=== PATIENT | female | born 1985 | race Two or more races ===

== ENCOUNTER 2019-03-30 13:56 | Inpatient (IN) | payer OTHER ==
[2019-03-30 14:13] VITALS: BMI 27.2
--- NOTE | 2019-03-30 19:44 | HP ---
COWS - Scale Resting Pulse: 0= [place] 80 or Below Sweatin=Flushed/Facial Moisture Restless Observation: 1= Difficult to Sit Still Pupil Size: 1= Pupils >than Normal Bone or Joint Aches: 2= Severe Diffuse Aches Runny Nose/ Eye Tearin= Runny Nose/Eyes GI Upset > 30mins: 2= Nausea/Diarrhea Tremor Observation: 2= Slight Tremor Visible Yawning Observation: 1= 1-2x During Session Anxiety or Irritability: 2=Irritable/Anxious Goose Flesh Skin: 3=Piloerection COWS Score: 18 CIWA Score Nausea/Vomitin Muscle Tremors: 2 Anxiety: 2 Agitation: 2 Paroxysmal Sweats: 2 Orientation: 0-Oriented Tacttile Disturbances: 2-Mild Itch/Numbness/Burn Auditory Disturbances: 1-Very Mild Visual Disturbances: 1-Very Mild Sensitivity Headache: 3-Moderate CIWA-Ar Total Score: 17 - Admission Criteria OASAS Guidelines: Admission for Medically Managed Detox: Requires at least one of the followin. CIWA greater than 12 2. Seizures within the past 24 hours 3. Delirium tremens within the past 24 hours 4. Hallucinations within the past 24 hours 5. Acute intervention needed for co occurring medical disorder 6. Acute intervention needed for co occurring psychiatric disorder 7. Severe withdrawal that cannot be handled at a lower level of care (continued vomiting, continued diarrhea, abnormal vital signs) requiring intravenous medication and/or fluids 8. Patient presents the following: CIWA greater than 12 Admission Criteria Met: Admission criteria met Admission ROS [facility] Chief Complaint: I want to get off this withdrawal Allergies/Adverse Reactions: Allergies Allergy/AdvReac Type Severity Reaction Status Date / Time No Known Allergies Allergy Verified 03/30/19 14:01 History of Present Illness: 34 year old woman with illicit drug use and alcohol dependence presents for detox. She was treated at [facility] for overdose, denies blackouts from alcohol but has had blackouts from Xanax. Patient is noted with an abscess to the right forearm, site tender and swollen, no drainage, antibiotic therapy initiated. Exam Limitations: No Limitations - Ebola screening Have you traveled outside of the country in the last 21 days: No Have you had contact with anyone from an Ebola affected area: No Have you been sick,other than usual withdrawal symptoms: No Do you have a fever: No - Review of Systems Constitutional: Chills, Loss of Appetite, Malaise, Weakness EENT: reports: Blurred Vision, Nose Congestion Respiratory: reports: SOB with Exertion Cardiac: reports: Lightheadedness GI: reports: Nausea, Poor Appetite, Poor Fluid Intake : reports: No Symptoms Reported Musculoskeletal: reports: Back Pain, Joint Pain, Muscle Pain, Muscle Weakness Integumentary: reports: Lesions (psoriatic plaques to the elbows) Neuro: reports: Headache, Numbness, Tingling, Tremors Endocrine: reports: No Symptoms Reported Hematology: reports: Anemia Psychiatric: reports: No Sypmtoms Reported Other Systems: Reviewed and Negative Patient History - Patient Medical History Hx Anemia: No Hx Asthma: Yes Hx Chronic Obstructive Pulmonary Disease (COPD): No Hx Cancer: No Hx Cardiac Disorders: No Hx Congestive Heart Failure: No Hx Hypertension: No Hx Hypercholesterolemia: No Hx Pacemaker: No HX Cerebrovascular Accident: No Hx Seizures: No Hx Dementia: No Hx Diabetes: No Hx Gastrointestinal Disorders: No Hx Liver Disease: Yes Hx Genitourinary Disorders: No Hx Sexually Transmitted Disorders: No Hx Thyroid Disease: No Hx Human Immunodeficiency Virus (HIV): No Hx Hepatitis C: Yes (untreated) Hx Depression: No Hx Suicide Attempt: No Hx Bipolar Disorder: No Hx Schizophrenia: No - Patient Surgical History Past Surgical History: Yes Hx Neurologic Surgery: No Hx Cataract Extraction: No Hx Cardiac Surgery: No Hx Lung Surgery: No Hx Breast Surgery: No Hx Breast Biopsy: No Hx Abdominal Surgery: No Hx Appendectomy: No Hx Cholecystectomy: No Hx Genitourinary Surgery: No Hx Section: Yes Hx Orthopedic Surgery: No Hx Hysterectomy: No Anesthesia Reaction: No - PPD History Previous Implant?: Yes Documented Results: Negative w/o proof Implanted On Prior R Admission?: No PPD to be Administered?: Yes - Reproductive History Patient is a Female of Child Bearing Age (11 -55 yrs old): Yes LMP comment: "I dont know" Patient : No - Smoking Cessation Smoking history: Current every day smoker Have you smoked in the past 12 months: Yes Aproximately how many cigarettes per day: 12 Hx Chewing Tobacco Use: No Initiated information on smoking cessation: Yes 'Breaking Loose' booklet given: 03/30/19 - Substances abused Alprazolam (Xanax) Substance route: Oral Frequency: Daily Amount used: 2 bars Age of first use: 29 Date of last use: 03/29/19 Crack Substance route: Smoking Frequency: Daily Amount used: $40 Age of first use: 27 Date of last use: 03/29/19 Heroin Substance route: Injection Frequency: Daily Amount used: 10- 15bags Age of first use: 28 Date of last use: 03/29/19 Admission Physical Exam [facility] - Vital Signs Vital Signs: Vital Signs - 24 hr 03/30/19 14:05 Temperature 97.4 F L Pulse Rate 69 Respiratory 20 Rate Blood Pressure 116/87 - Physical General Appearance: Yes: Disheveled HEENTM: Yes: Hearing grossly Normal, Normocephalic, Normal Voice, Pharynx Normal Respiratory: Yes: No Respiratory Distress, No Accessory Muscle Use, Wheezing Neck: Yes: No masses,lesions,Nodules, Supple Breast: Yes: Breast Exam Deferred Cardiology: Yes: Regular Rate, S1, S2, Murmur Abdominal: Yes: Normal Bowel Sounds, Non Tender Genitourinary: Yes: Within Normal Limits Back: Yes: Normal Inspection Musculoskeletal: Yes: full range of Motion, Back pain, Muscle weakness Extremities: Yes: Tremors, Other (right forearm swelling) Neurological: Yes: melting operator II-XII NML intact, Fully Oriented, Alert, Normal Mood/ Affect Integumentary: Yes: Track Miller, Other (psoriasis) - Diagnostic (1) Alcohol dependence, uncomplicated Current Visit: Yes Status: Acute (2) Benzodiazepine abuse Current Visit: Yes Status: Acute (3) Nicotine dependence Current Visit: Yes Status: Acute Qualifiers: Nicotine product type: cigarettes Substance use status: uncomplicated Qualified Code(s): F17.210 - Nicotine dependence, cigarettes, uncomplicated (4) Abscess of forearm, right Current Visit: Yes Status: Acute (5) IVDU (intravenous drug user) Current Visit: Yes Status: Acute (6) Asthma Current Visit: Yes Status: Acute Qualifiers: Asthma severity: mild Asthma persistence: intermittent Asthma complication type: uncomplicated Qualified Code(s): J45.20 - Mild intermittent asthma, uncomplicated (7) Hep C w/o coma, chronic Current Visit: Yes Status: Acute Cleared for Admission [facility] - Detox or Rehab [facility] Level of Care: Medically Managed Detox Regimen/Protocol: Methadone/Librium Claeared for Rehab Admission: No Breathalyzer - Breathalyzer Breathalyzer: 0 Urine Drug Screen - Test Device Lot number: [id number] Expiration date: 11/09/20 - Control Is test valid?: Yes - Results Drug screen NEGATIVE: No Urine drug screen results: ANTONIO-Cocaine, FEN-Fentanyl, MOP-Opiates, MTD-Methadone , BZO-Benzodiazepines Inpatient Rehab Admission - Rehab Decision to Admit Inpatient rehab admission?: No
[2019-03-30] MEDS ORDERED: BISMUTH SUBSALICYLATE 524 MG/30 ML UD PO PRN (19:53)
[2019-03-30] MEDS ORDERED: chlordiazePOXIDE HCL 25 MG CAPSULE PO PRN (19:53)
[2019-03-30] MEDS ORDERED: NALOXONE HCL 0.4 MG/ML VIAL IM PRN (19:53)
[2019-03-30] MEDS ORDERED: MAG HYDROX/AL HYDROX/SIMETH 30 ML UNIT-DOSE CUP PO PRN (19:53)
[2019-03-30] MEDS ORDERED: METHADONE HCL 10 MG TABLET (FOR DETOX USE ONLY) PO ONE (19:53)
[2019-03-30] MEDS ORDERED: MAGNESIUM HYDROX 2400MG/30ML ORAL SUSPENSION 30 ML CUP PO PRN (19:53)
[2019-03-30] MEDS ORDERED: MELATONIN 5 MG TABLETS PO PRN (19:53)
[2019-03-30] MEDS ORDERED: cloNIDine HCL 0.1 MG TABLET PO PRN (19:53)
[2019-03-30] MEDS ORDERED: MAGNESIUM CITRATE 300 ML BOTTLE PO PRN (19:53)
[2019-03-30] MEDS ORDERED: ACETAMINOPHEN 325 MG TABLET (FP) PO PRN ×2 (19:53)
[2019-03-30] MEDS ORDERED: NICOTINE POLACRILEX 2 MG GUM BUC PRN (19:53)
[2019-03-30] MEDS ORDERED: IBUPROFEN 400 MG TABLET (FP) PO PRN (19:53)
[2019-03-30] MEDS ORDERED: ALBUTEROL SO4 8 GM HFA INHALER IH PRN (19:55)
[2019-03-30] MEDS: SULFAMETHOXAZOLE/TRIMETHOPRIM 800MG/160MG D.S. TABLET PO SCH (21:13)
[2019-03-30] MEDS: traZODone HCL 100 MG TABLET (FP) PO SCH (21:13)
[2019-03-30] MEDS: THIAMINE HCL 100 MG TABLET (FP) PO SCH (21:13)
[2019-03-30] MEDS: NICOTINE 14 MG/24 HOURS TOPICAL PATCH TD SCH (21:25)
[2019-03-30] MEDS: DIVALPROEX SODIUM 500 MG TABLET E.C. PO SCH (22:04)
[2019-03-30] MEDS: chlordiazePOXIDE HCL 25 MG CAPSULE PO SCH (23:04)
[2019-03-31] MEDS: chlordiazePOXIDE HCL 25 MG CAPSULE PO SCH ×4 (06:46→22:23)
[2019-03-31] MEDS ORDERED: METHADONE HCL 5 MG TABLET (FOR DETOX USE ONLY) ONE (09:27)
[2019-03-31] MEDS ORDERED: METHADONE HCL 10 MG TABLET (FOR DETOX USE ONLY) ONE (09:28)
[2019-03-31] MEDS ORDERED: METHADONE (DETOX) 20 MG, METHADONE (DETOX) 5 MG PO ONE (10:00)
[2019-03-31] MEDS: SULFAMETHOXAZOLE/TRIMETHOPRIM 800MG/160MG D.S. TABLET PO SCH ×2 (10:23→22:23)
[2019-03-31] MEDS: DIVALPROEX SODIUM 500 MG TABLET E.C. PO SCH ×2 (10:23→22:23)
[2019-03-31] MEDS: PRENATAL VITAMINS W/ FOLIC ACID TABLET (FP) PO SCH (10:24)
[2019-03-31] MEDS: NICOTINE 14 MG/24 HOURS TOPICAL PATCH TD SCH (10:26)
[2019-03-31 10:54] LABS: MCH 29.2 pg (25.7-33.7); MCHC 33.2 g/dl (32.0-36.0); MEAN CELL VOLUME 87.9 fl (80-96); MEAN PLT VOLUME 7.4 fl (7.5-11.1); PLATELET COUNT 407 K/MM3 (134-434); RBC 3.75 M/mm3 (3.60-5.2); RDW 16.1 % (11.6-15.6); WHITE BLOOD COUNT 5.5 K/mm3 (4.0-10.0)
[2019-03-31 11:25] LABS: ALBUMIN 2.7 g/dl (3.4-5.0); BILIRUBIN,TOTAL 0.4 mg/dL (0.2-1); BLOOD UREA NITROGEN 8.4 mg/dL (7-18); CALCIUM 8.4 mg/dL (8.5-10.1); CREATININE 0.6 mg/dL (0.55-1.3); POTASSIUM 4.2 mmol/L (3.5-5.1); TOT PROT 6.1 g/dl (6.4-8.2)
[2019-03-31] MEDS ORDERED: FLU VACCINE QUAD 60 MCG/0.5 ML (MDV 19-20) IM ONE (12:32)
--- NOTE | 2019-03-31 12:38 | PN ---
[facility] CIWA - CIWA Score Nausea/Vomitin-Mild Nausea/No Vomiting Muscle Tremors: 4-Moderate,w/Arms Extend Anxiety: 4-Mod. Anxious/Guarded Agitation: 3 Paroxysmal Sweats: 3 Orientation: 0-Oriented Tacttile Disturbances: 0-None Auditory Disturbances: 0-None Visual Disturbances: 0-None Headache: 0-None Present CIWA-Ar Total Score: 15 BHS COWS - Scale Resting Pulse: 0= [place] 80 or Below Sweatin= Chills/Flushing Restless Observation: 3= Extraneous Movement Pupil Size: 0= Normal to Room Light Bone or Joint Aches: 2= Severe Diffuse Aches Runny Nose/ Eye Tearin= Runny Nose/Eyes GI Upset > 30mins: 3= Vomiting/Diarrhea Tremor Observation of Outstretched Hands: 2= Slight Tremor Visible Yawning Observation: 0= None Anxiety or Irritability: 2=Irritable/Anxious Goose Flesh Skin: 0=Smooth Skin COWS Score: 15 S Progress Note (SOAP) Subjective: Feels ok, medication helpful Objective: 03/31/19 12:34 Last Vital Signs Temp Pulse Resp BP Pulse Ox 97.7 F 68 18 90/53 L 03/31/19 09:33 03/31/19 09:33 03/31/19 09:33 03/31/19 09:33 Hypotension noted: encouraged PO water intake Laboratory Tests 03/31/19 03/31/19 08:00 08:00 WBC 5.5 RBC 3.75 Hgb 11.0 Hct 33.0 MCV 87.9 MCH 29.2 MCHC 33.2 RDW 16.1 H Plt Count 407 MPV 7.4 L Sodium 142 Potassium 4.2 Chloride 106 Carbon Dioxide 28 Anion Gap 8 BUN 8.4 Creatinine 0.6 Est GFR (CKD-EPI)AfAm 138.80 Est GFR (CKD-EPI)NonAf 119.76 Random Glucose 80 Calcium 8.4 L Total Bilirubin 0.4 AST 83 H ALT 111 H Alkaline Phosphatase 88 Total Protein 6.1 L Albumin 2.7 L Labs reviewed: mildly elevated AST/ALT most likely due to alcoholism Assessment: 03/31/19 12:35 Withdrawal sxs Plan: Continue detox Hypotension: asymptomatic, encouraged PO water intake Elevated LFTs (AST/ALT): most likely r/t alcoholism, consider monitoring AST/ ALT periodically
[2019-03-31] MEDS: traZODone HCL 100 MG TABLET (FP) PO SCH (22:23)
[2019-03-31] MEDS: THIAMINE HCL 100 MG TABLET (FP) PO SCH (22:23)
[2019-04-01] MEDS: chlordiazePOXIDE HCL 25 MG CAPSULE PO SCH ×4 (06:42→22:01)
[2019-04-01] MEDS ORDERED: METHADONE HCL 10 MG TABLET (FOR DETOX USE ONLY) PO ONE (10:00)
[2019-04-01] MEDS: SULFAMETHOXAZOLE/TRIMETHOPRIM 800MG/160MG D.S. TABLET PO SCH ×2 (10:16→21:51)
[2019-04-01] MEDS: DIVALPROEX SODIUM 500 MG TABLET E.C. PO SCH ×2 (10:16→21:51)
[2019-04-01] MEDS: PRENATAL VITAMINS W/ FOLIC ACID TABLET (FP) PO SCH (10:16)
[2019-04-01] MEDS: NICOTINE 14 MG/24 HOURS TOPICAL PATCH TD SCH (10:16)
[2019-04-01] MEDS: METHOCARBAMOL 500 MG TABLET PO PRN ×2 (10:18→18:02)
--- NOTE | 2019-04-01 11:26 | PN ---
[facility] CIWA - CIWA Score Nausea/Vomitin-Mild Nausea/No Vomiting Muscle Tremors: 2 Anxiety: 2 Agitation: 2 Paroxysmal Sweats: No Perspiration Orientation: 0-Oriented Tacttile Disturbances: 1-Very Mild Itch/Numbness Auditory Disturbances: 0-None Visual Disturbances: 0-None Headache: 2-Mild CIWA-Ar Total Score: 10 S Progress Note (SOAP) Subjective: alert,irritable,anxious,interrupted sleep,tremor,pain in the body Objective: 04/01/19 11:25 Vital Signs Temperature 96.5 F L 04/01/19 09:32 Pulse Rate 75 04/01/19 09:32 Respiratory Rate 18 04/01/19 09:32 Blood Pressure 118/66 04/01/19 09:32 O2 Sat by Pulse Oximetry (%) Laboratory Last Values WBC 5.5 K/mm3 (4.0-10.0) 03/31/19 08:00 RBC 3.75 M/mm3 (3.60-5.2) 03/31/19 08:00 Hgb 11.0 GM/dL (10.7-15.3) 03/31/19 08:00 Hct 33.0 % (32.4-45.2) 03/31/19 08:00 MCV 87.9 fl (80-96) 03/31/19 08:00 MCH 29.2 pg (25.7-33.7) 03/31/19 08:00 MCHC 33.2 g/dl (32.0-36.0) 03/31/19 08:00 RDW 16.1 % (11.6-15.6) H 03/31/19 08:00 Plt Count 407 K/MM3 (134-434) 03/31/19 08:00 MPV 7.4 fl (7.5-11.1) L 03/31/19 08:00 Sodium 142 mmol/L (136-145) 03/31/19 08:00 Potassium 4.2 mmol/L (3.5-5.1) 03/31/19 08:00 Chloride 106 mmol/L (98-107) 03/31/19 08:00 Carbon Dioxide 28 mmol/L (21-32) 03/31/19 08:00 Anion Gap 8 MMOL/L (8-16) 03/31/19 08:00 BUN 8.4 mg/dL (7-18) 03/31/19 08:00 Creatinine 0.6 mg/dL (0.55-1.3) 03/31/19 08:00 Est GFR (CKD-EPI)AfAm 138.80 03/31/19 08:00 Est GFR (CKD-EPI)NonAf 119.76 03/31/19 08:00 Random Glucose 80 mg/dL (74-106) 03/31/19 08:00 Calcium 8.4 mg/dL (8.5-10.1) L 03/31/19 08:00 Total Bilirubin 0.4 mg/dL (0.2-1) 03/31/19 08:00 AST 83 U/L (15-37) H 03/31/19 08:00 ALT 111 U/L (13-61) H 03/31/19 08:00 Alkaline Phosphatase 88 U/L (45-117) 03/31/19 08:00 Total Protein 6.1 g/dl (6.4-8.2) L 03/31/19 08:00 Albumin 2.7 g/dl (3.4-5.0) L 03/31/19 08:00 RPR Titer Nonreactive (NONREACTIVE) 03/31/19 08:00 Assessment: 04/01/19 11:26 withdrawal symptom Plan: continue detox librium regimen repeat ast,alt in am
[2019-04-01] MEDS: MENTHOL/PHENOL 1 EACH UD MM PRN (18:03)
[2019-04-01] MEDS: THIAMINE HCL 100 MG TABLET (FP) PO SCH (21:51)
[2019-04-01] MEDS: traZODone HCL 100 MG TABLET (FP) PO SCH (21:52)
[2019-04-02] MEDS ORDERED: chlordiazePOXIDE HCL 10 MG CAPSULE PO PRN
[2019-04-02] MEDS: chlordiazePOXIDE HCL 10 MG CAPSULE PO SCH ×4 (07:22→22:32)
[2019-04-02] MEDS ORDERED: METHADONE HCL 5 MG TABLET (FOR DETOX USE ONLY) ONE (09:05)
[2019-04-02] MEDS ORDERED: METHADONE HCL 10 MG TABLET (FOR DETOX USE ONLY) ONE (09:05)
[2019-04-02] MEDS ORDERED: METHADONE (DETOX) 10 MG, METHADONE (DETOX) 5 MG PO ONE (10:00)
[2019-04-02] MEDS: SULFAMETHOXAZOLE/TRIMETHOPRIM 800MG/160MG D.S. TABLET PO SCH ×2 (10:32→21:37)
[2019-04-02] MEDS: NICOTINE 14 MG/24 HOURS TOPICAL PATCH TD SCH (10:32)
[2019-04-02] MEDS: PRENATAL VITAMINS W/ FOLIC ACID TABLET (FP) PO SCH (10:32)
[2019-04-02] MEDS: METHOCARBAMOL 500 MG TABLET PO PRN ×2 (10:33→17:33)
[2019-04-02] MEDS: DIVALPROEX SODIUM 500 MG TABLET E.C. PO SCH ×2 (10:33→21:37)
--- NOTE | 2019-04-02 12:36 | PN ---
S CIWA - CIWA Score Nausea/Vomitin-No Nausea/No Vomiting Muscle Tremors: 2 Anxiety: 2 Agitation: 2 Paroxysmal Sweats: 2 Orientation: 0-Oriented Tacttile Disturbances: 0-None Auditory Disturbances: 0-None Visual Disturbances: 0-None Headache: 0-None Present CIWA-Ar Total Score: 8 BHS Progress Note (SOAP) Subjective: body aches sweats interrupted sleep Objective: 04/02/19 12:35 Vital Signs Temperature 100.2 F H 04/02/19 11:26 Pulse Rate 79 04/02/19 11:26 Respiratory Rate 18 04/02/19 11:26 Blood Pressure 147/60 04/02/19 11:26 O2 Sat by Pulse Oximetry (%) Laboratory Tests 03/30/19 03/31/19 03/31/19 20:33 08:00 08:00 WBC 5.5 RBC 3.75 Hgb 11.0 Hct 33.0 MCV 87.9 MCH 29.2 MCHC 33.2 RDW 16.1 H Plt Count 407 MPV 7.4 L Sodium 142 Potassium 4.2 Chloride 106 Carbon Dioxide 28 Anion Gap 8 BUN 8.4 Creatinine 0.6 Est GFR (CKD-EPI)AfAm 138.80 Est GFR (CKD-EPI)NonAf 119.76 Random Glucose 80 Calcium 8.4 L Total Bilirubin 0.4 AST 83 H ALT 111 H Alkaline Phosphatase 88 Total Protein 6.1 L Albumin 2.7 L POC Urine HCG, Qual Negative RPR Titer 03/31/19 08:00 WBC RBC Hgb Hct MCV MCH MCHC RDW Plt Count MPV Sodium Potassium Chloride Carbon Dioxide Anion Gap BUN Creatinine Est GFR (CKD-EPI)AfAm Est GFR (CKD-EPI)NonAf Random Glucose Calcium Total Bilirubin AST ALT Alkaline Phosphatase Total Protein Albumin POC Urine HCG, Qual RPR Titer Nonreactive labs noted elevated ast/alt; d/c tylenol aaox3 ambulating no acute distress Assessment: 04/02/19 12:36 withdrawal sx Plan: continue detox increase fluids
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
[2019-04-02] MEDS: MENTHOL/PHENOL 1 EACH UD MM PRN (17:34)
[2019-04-02] MEDS: THIAMINE HCL 100 MG TABLET (FP) PO SCH (21:37)
[2019-04-02] MEDS: traZODone HCL 100 MG TABLET (FP) PO SCH (21:37)
[2019-04-03] MEDS: chlordiazePOXIDE HCL 10 MG CAPSULE PO SCH ×2 (06:58→18:19)
[2019-04-03 09:27] VITALS: BP 91/66; PULSE 77; TEMP 96.3
--- NOTE | 2019-04-03 09:43 | EKG ---
Test Reason : Blood Pressure : / mmHG Vent. Rate : 075 BPM Atrial Rate : 075 BPM P-R Int : 172 ms QRS Dur : 086 ms QT Int : 398 ms P-R-T Axes : 056 072 038 degrees QTc Int : 444 ms NORMAL SINUS RHYTHM NORMAL ECG NO PREVIOUS ECGS AVAILABLE Confirmed by CAYDEN NICK, TASHI ([id number]) on 04/03/2019 9:43:31 AM Referred By: BOB ALMEIDA Confirmed By:TASHI RODARTE MD
--- NOTE | 2019-04-03 09:55 | PN ---
S Progress Note Note: pt woke up this morning c/o of a large swelling noted to her left side of neck. Pt was assessed and it appears to be an abscess size of an apple to her left lateral side of neck. pt denies having pain or difficulty swallowing. However pt was encouraged to see our MD at our ED at [facility] and pt agreed. report given to MARTY Spears for evaluation.
[2019-04-03] MEDS: PRENATAL VITAMINS W/ FOLIC ACID TABLET (FP) PO SCH (09:57)
[2019-04-03] MEDS: METHOCARBAMOL 500 MG TABLET PO PRN (09:57)
[2019-04-03] MEDS ORDERED: METHADONE HCL 10 MG TABLET (FOR DETOX USE ONLY) PO ONE (10:00)
[2019-04-03] MEDS: SULFAMETHOXAZOLE/TRIMETHOPRIM 800MG/160MG D.S. TABLET PO SCH (11:32)
[2019-04-03] MEDS: DIVALPROEX SODIUM 500 MG TABLET E.C. PO SCH (11:32)
[2019-04-03] MEDS: NICOTINE 14 MG/24 HOURS TOPICAL PATCH TD SCH (11:32)
--- NOTE | 2019-04-03 18:25 | PN ---
[facility] Progress Note Note: Received call from MARCELO Maher from [place] ED regarding pt refusal of care for an enormous abscess she was sent there for. Pt was spoken to via phone with MARCELO Maher present and pt continue to state she is going to leave and will sign our AMA because she doesnt want any treatment. Pt was also explained that without this care and having the abscess drained and IV antibiotic given she cannot continue treatment in detox. Pt understand this and insisted she will leave and go home location [facility] [place]. pt will be d/c from detox effective now.
--- NOTE | 2019-04-03 18:27 | DS ---
[facility] Detox Discharge Summary Admission Date: 03/30/19 - History Present History: Opioid Dependence Additional Comments: pt sent to [facility] for evaluation for an abscess to her left side of neck. - Physical Exam Results Vital Signs: Vital Signs Temperature 96.3 F L 04/03/19 09:27 Pulse Rate 77 04/03/19 09:27 Respiratory Rate 16 04/03/19 09:27 Blood Pressure 91/66 04/03/19 09:27 O2 Sat by Pulse Oximetry (%) - Treatment Patient has Accepted a Rehab Referral to: pt refused all treatment - Medication Discharge Medications: Ambulatory Orders Divalproex [Depakote -] 500 mg PO BID 03/30/19 traZODone HCL [Trazodone HCl] 100 mg PO HS 03/30/19 - Diagnosis (1) Abscess, neck Current Visit: Yes Status: Acute (2) Alcohol dependence, uncomplicated Current Visit: Yes Status: Chronic (3) IVDU (intravenous drug user) Current Visit: Yes Status: Chronic (4) Sedative hypnotic or anxiolytic dependence Current Visit: Yes Status: Acute (5) Substance induced mood disorder Current Visit: Yes Status: Acute (6) Substance-induced sleep disorder Current Visit: Yes Status: Acute (7) Uncomplicated opioid dependence Current Visit: Yes Status: Chronic (8) Abscess of forearm, right Current Visit: Yes Status: Chronic (9) Asthma Current Visit: Yes Status: Chronic Qualifiers: Asthma severity: mild Asthma persistence: intermittent Asthma complication type: uncomplicated Qualified Code(s): J45.20 - Mild intermittent asthma, uncomplicated (10) Hep C w/o coma, chronic Current Visit: Yes Status: Chronic (11) Nicotine dependence Current Visit: Yes Status: Chronic Qualifiers: Nicotine product type: cigarettes Substance use status: uncomplicated Qualified Code(s): F17.210 - Nicotine dependence, cigarettes, uncomplicated - AMA Did Patient Leave Against Medical Advice: Yes
[2019-04-04] MEDS ORDERED: chlordiazePOXIDE HCL 10 MG CAPSULE PO ONE (05:00)
[2019-04-04] MEDS ORDERED: METHADONE HCL 5 MG TABLET (FOR DETOX USE ONLY) PO ONE (06:00)
== END 2019-04-03 18:51 | disposition home or self-care (01) | DRG 773 ==
LOC: YASAS 13:56 → Y6N 20:16
PROVIDERS: ADMIT Allergy & Immunology; ATTEND Allergy & Immunology
PROC: HZ2ZZZZ Detoxification Services for Substance Abuse Treatment (ICD-10-PCS; principal; 2019-03-30)
DX: F11.23 Opioid dependence with withdrawal (principal); F10.230 Alcohol dependence with withdrawal, uncomplicated; F13.230 Sedative, hypnotic or anxiolytic dependence with withdrawal, uncomplicated; F17.210 Nicotine dependence, cigarettes, uncomplicated; F19.24 Other psychoactive substance dependence with psychoactive substance-induced mood disorder; F19.282 Other psychoactive substance dependence with psychoactive substance-induced sleep disorder; J45.20 Mild intermittent asthma, uncomplicated; B18.2 Chronic viral hepatitis C; R74.0 Nonspecific elevation of levels of transaminase and lactic acid dehydrogenase [LDH]; I95.9 Hypotension, unspecified; R01.1 Cardiac murmur, unspecified; L02.11 Cutaneous abscess of neck; L02.413 Cutaneous abscess of right upper limb
CPT/HCPCS: 36415; 70491-TC; 80053; 81025; 84703; 85025; 85027; 85610; 86593; 86850; 86900; 86901; 93005; 93010; 99283-25

== ENCOUNTER 2019-04-03 10:56 | Emergency (ER) | payer OTHER ==
[2019-04-03 11:04] VITALS: BP 95/70; PULSE 90; TEMP 98; BMI 25.8
[2019-04-03 13:03] LABS: BASO % 0.4 % (0-2.0); EOS % 4.2 % (0-4.5); HEMATOCRIT 39.6 % (32.4-45.2); HEMOGLOBIN 12.9 GM/dL (10.7-15.3); LYMPH % 22.3 % (8-40); MCH 28.7 pg (25.7-33.7); MCHC 32.5 g/dl (32.0-36.0); MEAN CELL VOLUME 88.2 fl (80-96); MEAN PLT VOLUME 6.9 fl (7.5-11.1); MONO % 9.7 % (3.8-10.2); NEUT % 63.4 % (42.8-82.8); PLATELET COUNT 501 K/MM3 (134-434); RBC 4.49 M/mm3 (3.60-5.2); RDW 15.9 % (11.6-15.6); WHITE BLOOD COUNT 8.2 K/mm3 (4.0-10.0)
[2019-04-03 13:22] LABS: INR 1.18 (0.83-1.09); PROTHROMBIN TIME (PATIENT) 13.9 SEC (9.7-13.0)
[2019-04-03 13:41] LABS: ALBUMIN 3.4 g/dl (3.4-5.0); BILIRUBIN,TOTAL 0.3 mg/dL (0.2-1); BLOOD UREA NITROGEN 11.8 mg/dL (7-18); CALCIUM 9.4 mg/dL (8.5-10.1); POTASSIUM 5.1 mmol/L (3.5-5.1); TOT PROT 7.9 g/dl (6.4-8.2)
--- NOTE | 2019-04-03 13:47 | PDOC ---
History of Present Illness - General Chief Complaint: Abscess Boil Stated Complaint: ABSCESS Time Seen by Provider: 04/03/19 11:56 History Source: Patient - History of Present Illness Timing/Duration: other (this am) Past History - Past Medical History Allergies/Adverse Reactions: Allergies Allergy/AdvReac Type Severity Reaction Status Date / Time No Known Allergies Allergy Verified 03/30/19 14:01 Home Medications: Ambulatory Orders Divalproex [Depakote -] 500 mg PO BID 03/30/19 traZODone HCL [Trazodone HCl] 100 mg PO HS 03/30/19 Anemia: No Asthma: No Cancer: No Cardiac Disorders: No CVA: No COPD: No CHF: No Dementia: No Diabetes: No GI Disorders: No Disorders: No HTN: No Hypercholesterolemia: No Liver Disease: Yes Seizures: No Thyroid Disease: No - Surgical History Abdominal Surgery: No Appendectomy: No Cardiac Surgery: No Cholecystectomy: No Lung Surgery: No Neurologic Surgery: No Orthopedic Surgery: No - Psycho Social/Smoking Cessation Hx Smoking History: Current some day smoker Have you smoked in the past 12 months: Yes Number of Cigarettes Smoked Daily: 12 Information on smoking cessation initiated: No 'Breaking Loose' booklet given: 03/30/19 Hx Alcohol Use: No Drug/Substance Use Hx: Yes Review of Systems - Review of Systems Constitutional: No: Chills, Fever *Physical Exam - Vital Signs Last Vital Signs Temp Pulse Resp BP Pulse Ox 98 F 90 18 95/70 96 04/03/19 11:01 04/03/19 11:01 04/03/19 11:01 04/03/19 11:01 04/03/19 11:01 - Physical Exam General Appearance: Yes: Appropriately Dressed. No: Apparent Distress HEENT: positive: Normal Voice Neck: positive: Other (mass the size of an apple to L neck, NT, fixed, non fluctuant, no overlying erythema) Respiratory/Chest: negative: Respiratory Distress Integumentary: positive: Dry, Warm Neurologic: positive: Fully Oriented, Alert, Normal Mood/Affect ED Treatment Course - LABORATORY CBC & Chemistry Diagram: 04/03/19 12:30 04/03/19 12:30 - ADDITIONAL ORDERS Additional order review: Laboratory Results 04/03/19 04/03/19 04/03/19 12:30 12:30 12:30 PT with INR 13.90 H INR 1.18 H Sodium 133 L Potassium 5.1 Chloride 99 Carbon Dioxide 29 Anion Gap 5 L BUN 11.8 Creatinine 1.0 Est GFR (CKD-EPI)AfAm 85.72 Est GFR (CKD-EPI)NonAf 73.96 Random Glucose 91 Calcium 9.4 Total Bilirubin 0.3 AST 84 H ALT 126 H Alkaline Phosphatase 113 Total Protein 7.9 Albumin 3.4 Serum , Qual Negative 04/03/19 12:30 RBC 4.49 MCV 88.2 MCHC 32.5 RDW 15.9 H MPV 6.9 L Neutrophils % 63.4 Lymphocytes % 22.3 Monocytes % 9.7 Eosinophils % 4.2 Basophils % 0.4 - RADIOLOGY Radiology Studies Ordered: Category Date Time Status SOFT TISSUE NECK CT WITH CONTR [CT] Stat CT Scan 04/03/19 12:02 Ordered Medical Decision Making - Medical Decision Making 04/03/19 13:48 34-year-old female history of polysubstance abuse, HCV, abscesses, currently inpatient at [facility] for detox and sent to ED for eval of L neck mass that pt awoke with this am. Denies sig pain and no f/c. Admits to using neck for her IVDU in past see exam Neck mass in IDVDU ?abscess vs malignancy though less likely given abrupt onset Stable here w/ apple sized, NT, fixed mass to L neck -labs -CT -dispo pending 04/03/19 15:[address] read pending. Signed out to MARCELO Reed at this time
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
--- NOTE | 2019-04-03 17:56 | PDOC ---
*Physical Exam - Vital Signs Last Vital Signs Temp Pulse Resp BP Pulse Ox 98 F 90 18 95/70 96 04/03/19 11:01 04/03/19 11:01 04/03/19 11:01 04/03/19 11:01 04/03/19 11:01 ED Treatment Course - LABORATORY CBC & Chemistry Diagram: 04/03/19 12:30 04/03/19 12:30 - ADDITIONAL ORDERS Additional order review: Laboratory Results 04/03/19 04/03/19 04/03/19 12:30 12:30 12:30 PT with INR 13.90 H INR 1.18 H Sodium Potassium Chloride Carbon Dioxide Anion Gap BUN Creatinine Est GFR (CKD-EPI)AfAm Est GFR (CKD-EPI)NonAf Random Glucose Calcium Total Bilirubin AST ALT Alkaline Phosphatase Total Protein Albumin Serum , Qual Negative Blood Type O POSITIVE Antibody Screen Negative 04/03/19 12:30 PT with INR INR Sodium 133 L Potassium 5.1 Chloride 99 Carbon Dioxide 29 Anion Gap 5 L BUN 11.8 Creatinine 1.0 Est GFR (CKD-EPI)AfAm 85.72 Est GFR (CKD-EPI)NonAf 73.96 Random Glucose 91 Calcium 9.4 Total Bilirubin 0.3 AST 84 H ALT 126 H Alkaline Phosphatase 113 Total Protein 7.9 Albumin 3.4 Serum , Qual Blood Type Antibody Screen 04/03/19 12:30 RBC 4.49 MCV 88.2 MCHC 32.5 RDW 15.9 H MPV 6.9 L Neutrophils % 63.4 Lymphocytes % 22.3 Monocytes % 9.7 Eosinophils % 4.2 Basophils % 0.4 Medical Decision Making - Medical Decision Making 04/03/19 17:55 Ms Tobar is a 34 yo F h/o IV drug use admitted to [facility] h/o HCV, h/o abscesses currently on abx for arm abscess Pt sent from [facility] due to left neck mass which apparently appeared this morning Pt admits to IVDU in her neck On examination: No fever Pt ambulatory through out the ER complaining 6 cm mass that is NT, difficult to move Plan for CT IV abx Admit Pt frustrated Refusing to stay in the ER Opts at this time to leave both the ER and [facility] Pt told that doing so is very risky and could result in a severe and overwhelming infection Clinical impression: left neck abscess, initial presentation IV drug infection, initial presentation Discharge - Discharge Information Problems reviewed: Yes Clinical Impression/Diagnosis: Alcohol dependence, uncomplicated, Abscess, neck Condition: Guarded Disposition: AGAINST MEDICAL ADVICE - Follow up/Referral - Patient Discharge Instructions - Post Discharge Activity
== END 2019-04-03 17:15 | disposition left against medical advice (07) ==
LOC: JER 10:56
DX: L02.11 Cutaneous abscess of neck (principal); F10.20 Alcohol dependence, uncomplicated
CPT/HCPCS: 36415; 70491-TC; 80053; 84703; 85025; 85610; 86850; 86900; 86901; 99283-25